=== PATIENT | female | born 1995 | race Caucasian/White ===

== ENCOUNTER → 2024-05-06 14:37 | Outpatient (REF) | payer OTHER, SELFPAY | LOC: HWRAD 14:37 | PROVIDERS: ATTENDING PHYSICIAN Obstetrics & Gynecology; FAMILY PHYSICIAN Student in an Organized Health Care Education/Training Program | DX: N90.7 Vulvar cyst (principal) | CPT/HCPCS: 76830; 76856 ==

== ENCOUNTER → 2024-08-23 19:10 | Outpatient (REF) | payer OTHER, SELFPAY | LOC: MRI 3T 19:10 | PROVIDERS: ATTENDING PHYSICIAN Obstetrics & Gynecology; FAMILY PHYSICIAN Student in an Organized Health Care Education/Training Program | DX: Q52.4 Other congenital malformations of vagina (principal) | CPT/HCPCS: 72197; A9575 ==

== ENCOUNTER 2024-09-21 06:04 | Day surgery (SDC) | payer OTHER, SELFPAY ==
[2024-09-13 10:49] LABS: Hematocrit 40.4 % (37.0-47.0); Hemoglobin 13.9 g/dL (12.0-16.0); Mean Corp Hgb Conc. 34.4 g/dL (33.0-37.0); Mean Corpuscular Volume 87.3 fL (81.0-99.0); Mean Platelet Volume 8.8 fL (7.4-10.4); Platelet Count 368 10^3/uL (130-400); Red Blood Cell Count 4.63 10^6/uL (4.20-5.40); Red Cell Dist. Width 11.9 % (11.5-14.5); White Blood Cell Count 7.2 10^3/uL (4.8-10.8)
[2024-09-13 11:08] LABS: Blood Urea Nitrogen 12 mg/dl (7-17); Calcium 9.7 mg/dl (8.4-10.2); Carbon Dioxide 26 mmol/L (22-30); Chloride 102 mmol/L (98-107); Glucose 88 mg/dl (70-99); Potassium 4.8 mmol/L (3.5-5.1); Sodium 137 mmol/L (135-145); eGFR > 60.00
[2024-09-21 06:05] VITALS: BMI 27.0
[2024-09-21 06:10] VITALS: BP 132/80
[2024-09-21] MEDS: Pyridium 200 MG PO (06:30)
[2024-09-21] MEDS: NORMOSOL-R/PLASMALYTE-A 1000 IV (06:31)
[2024-09-21 06:44] VITALS: BMI 27.0
[2024-09-21 09:48] VITALS: BP 125/73; BP 132/80
[2024-09-21 10:28] VITALS: BP 116/69
[2024-09-21 10:57] VITALS: BP 111/68
[2024-09-21] MEDS: ZOFRAN 4 MG IV (11:15)
[2024-09-21 11:30] VITALS: BP 118/75
[2024-09-21] MEDS: ROXICODONE 5 MG PO (11:37)
== END 2024-09-21 12:30 | disposition home or self-care (01) ==
LOC: SDS 06:04
PROVIDERS: ATTENDING PHYSICIAN Obstetrics & Gynecology; FAMILY PHYSICIAN Student in an Organized Health Care Education/Training Program
DX: Q52.4 Other congenital malformations of vagina (principal)
CPT/HCPCS: 57135; 88304; 36415; 80048; 85027; 86850; 86900; 86901; 93005

== ENCOUNTER 2024-09-24 03:57 | Emergency (ER) | payer OTHER, SELFPAY ==
[2024-09-24 04:02] VITALS: BP 138/92
[2024-09-24 04:24] LABS: % Basophils 0.5 % (0-2); % Immature Granulocytes 0.3 % (0-0.5); % Lymphocytes 23.9 % (20.5-51.1); % Monocytes 5.8 % (1.7-9.3); % Neutrophils 68.5 % (42.2-75.2); Absolute Basophils 0.1 10^3/uL (0-0.2); Absolute Eosinophils 0.1 10^3/uL (0-0.7); Absolute Lymphocytes 2.2 10^3/uL (1.2-3.4); Absolute Monocytes 0.5 10^3/uL (0.1-0.6); Absolute Neutrophils 6.4 10^3/uL (1.4-6.5); Hematocrit 37.3 % (37.0-47.0); Hemoglobin 12.9 g/dL (12.0-16.0); Mean Corp Hgb Conc. 34.6 g/dL (33.0-37.0); Mean Corpuscular Hgb 30.4 pg (27.0-31.0); Mean Corpuscular Volume 87.8 fL (81.0-99.0); Mean Platelet Volume 8.3 fL (7.4-10.4); Nucleated Red Blood Cells % 0 %; Platelet Count 348 10^3/uL (130-400); Red Blood Cell Count 4.25 10^6/uL (4.20-5.40); Red Cell Dist. Width 11.9 % (11.5-14.5); White Blood Cell Count 9.4 10^3/uL (4.8-10.8)
[2024-09-24 04:35] LABS: HCG, Serum Qualitative Screen Negative
[2024-09-24 04:44] LABS: ALT (SGPT) 29 U/L (0-35); AST (SGOT) 29 U/L (14-36); Albumin 4.1 g/dl (3.5-5.0); Alkaline Phosphatase 77 U/L (38-126); Blood Urea Nitrogen 12 mg/dl (7-17); Calcium 9.3 mg/dl (8.4-10.2); Carbon Dioxide 29 mmol/L (22-30); Chloride 103 mmol/L (98-107); Glucose 112 mg/dl (70-99); Potassium 4.1 mmol/L (3.5-5.1); Sodium 140 mmol/L (135-145); Total Protein 6.7 g/dl (6.3-8.2)
[2024-09-24 04:54] LABS: eGFR > 60.00
--- NOTE | 2024-09-24 07:28 | ED.GENMED ---
History of Present Illness
General
Chief Complaint: Abdominal Pain
Time Seen by Provider: 09/24/24 07:27
History of Present Illness
History of Present Illness:
29-year-old female presents to the emergency department for evaluation of constipation, has not had a bowel movement for 1 week. She is 3 days status post laparoscopic ovarian cystectomy. Denies any abdominal distention but does feel mild
intermittent crampy pain throughout the abdomen. No fevers or chills. Passing small caliber stools and occasional liquid
Review of Systems
Review of Systems
Allergies reviewed?: Yes
All Other Systems: ROS reviewed and negative except as documented in HPI and ROS
Phy Exam
Physical Exam
Physical Exam:
GEN: Well appearing, NAD, WDWN
HEENT: Oral mucosa moist, no scleral icterus
Cardiac: Regular rate
Lung: No respiratory distress, no tachypnea
MSK: No gross deformity or injuries
Skin: Good color, no pallor or jaundice, no rashes
Neuro: AO x3, moves all extremities freely
Psych: Calm, cooperative
Course
Orders/Labs/Results
Orders:
Orders
09/24/24 04:05
Test Result ONCE
09/24/24 04:14
Complete Blood Count/With Diff Urgent
Comprehensive Metabolic Panel Urgent
HCG, Serum Qualitative Screen Urgent
09/24/24 07:28
CR Obstruct Series W/pa Chest Urgent
Comment:
Reason For Exam: constipation/recent surgery
Abnormal Lab Results
09/24/24
04:14
Glucose 112 H mg/dl
(70-99)
09/24/24 04:14
09/24/24 04:14
Vital Signs
Initial and Last Documented VS:
Initial Vital Signs
Temp Pulse Resp BP Pulse Ox
98.4 F 69 16 138/92 99
09/24/24 04:02 09/24/24 04:02 09/24/24 04:02 09/24/24 04:02 09/24/24 04:02
Last Documented Vital Signs
Temp Pulse Resp BP Pulse Ox
98.4 F 69 16 138/92 99
09/24/24 04:02 09/24/24 04:02 09/24/24 04:02 09/24/24 04:02 09/24/24 04:02
MDM/Problems Addressed
MDM/Problems Addressed:
No evidence of bowel obstruction on plain films. Patient does not have severe rectal discomfort suggesting a fecal impaction. Will recommend potent laxatives and increase fluids
*Critical Care Note
Total Time (30-74mins, 75-104mins- exclusive of procedures): Not Applicable
ED Attending Note
-
Portions of this chart may have been created with voice recognition software.� Occasional wrong word or��sound alike� substitutions may have occurred due to the inherent limitations of voice recognition software.
Discharge Plan
Departure
Patient Disposition: Home (Routine Discharge)
Date of Disposition: 09/24/24
Time of Disposition: 08:32
Patient with high blood pressure during this ER visit?: No
Discharge Problem:
Constipation
Instructions: Constipation, Adult (DC)
Prescriptions:
No Action
cyanocobalamin (vitamin B-12) 1,000 MCG tablet
1,000 mcg PO DAILY
mesalamine [Lialda] 1.2 GM tablet,delayed release (DR/EC)
4 tab PO DAILY
escitalopram oxalate 5 mg Tablet
5 mg PO DAILY
cholecalciferol (vitamin D3) [Vitamin D3] 50 mcg (2,000 unit) Capsule
50 mcg PO DAILY
Activity Restrictions/Additional Instructions:
Option 1: Miralax bowel prep
Mix a full (238g) bottle of Miralax into two 32 oz liquids of your choice and consume over 6-8 hours. Take two Dulcolax OR senna at the start and at the end of the prep
Option 2: Magnesium Citrate
can be purchased at most OTC pharmacies
Consume entire bottle in one sitting
If you feel intense rectal pressure and cannot pass stool, you may need an enema or a manual disimpaction
Interventions
Interventions:
*General Assessment Last Done: 09/24/24 04:02
*ED COVID-19 Vaccine History Last Done: 09/24/24 04:02
*Nursing Disposition Last Done: 09/24/24 09:05
Discharge Date and Time
Discharge Date/Time: 09/24/24 09:05
Print Language: [place] CITIZ[place]
== END 2024-09-24 09:05 | disposition home or self-care (01) ==
LOC: EMR 03:57
PROVIDERS: Student in an Organized Health Care Education/Training Program; EMERGENCY PHYSICIAN Emergency Medicine; FAMILY PHYSICIAN Student in an Organized Health Care Education/Training Program
DX: K59.00 Constipation, unspecified (principal)
CPT/HCPCS: 99283; 74022; 80053; 84703; 85025

== ENCOUNTER → 2024-10-29 08:01 | Outpatient (REF) | payer OTHER, SELFPAY | LOC: HWRCS 08:01 | PROVIDERS: ATTENDING PHYSICIAN Nuclear Medicine Nuclear Cardiology; FAMILY PHYSICIAN Student in an Organized Health Care Education/Training Program | DX: R07.89 Other chest pain (principal); R00.2 Palpitations; R06.02 Shortness of breath | CPT/HCPCS: 93306 ==

== ENCOUNTER 2024-11-01 06:24 | Day surgery (SDC) | payer OTHER, SELFPAY | END 2024-11-01 14:21 | disposition home or self-care (01) | LOC: GI 06:24 | PROVIDERS: ATTENDING PHYSICIAN Internal Medicine | DX: Z12.11 Encounter for screening for malignant neoplasm of colon (principal); K50.10 Crohn's disease of large intestine without complications | CPT/HCPCS: 45380; 88305 ==

== ENCOUNTER → 2024-11-12 07:36 | Outpatient (REF) | payer OTHER, SELFPAY | LOC: RCS 07:36 | PROVIDERS: ATTENDING PHYSICIAN Nuclear Medicine Nuclear Cardiology; FAMILY PHYSICIAN Student in an Organized Health Care Education/Training Program | DX: R07.89 Other chest pain (principal); R00.2 Palpitations; R06.02 Shortness of breath | CPT/HCPCS: 93017 ==

== ENCOUNTER 2025-08-15 10:50 | Observation (INO) | payer OTHER, SELFPAY ==
[2025-08-15 11:03] VITALS: BMI 28.5
[2025-08-15] MEDS: CELESTONE SOLUSPAN 2 MG IM (11:14)
== END 2025-08-15 11:30 | disposition home or self-care (01) ==
LOC: PNTC-IN 10:50
PROVIDERS: ADMITTING PHYSICIAN Obstetrics & Gynecology
DX: O26.873 Cervical shortening, third trimester (principal); Z3A.28 28 weeks gestation of pregnancy
CPT/HCPCS: G0378

== ENCOUNTER 2025-08-16 11:01 | Observation (INO) | payer OTHER, SELFPAY ==
[2025-08-16 11:14] VITALS: BP 122/65; BMI 28.5
[2025-08-16] MEDS: CELESTONE SOLUSPAN 2 MG IM (11:49)
== END 2025-08-16 12:15 | disposition home or self-care (01) ==
LOC: PNTC-IN 11:01
PROVIDERS: ADMITTING PHYSICIAN Obstetrics & Gynecology; ATTENDING PHYSICIAN Obstetrics & Gynecology
DX: O26.873 Cervical shortening, third trimester (principal); O09.523 Supervision of elderly multigravida, third trimester; Z3A.28 28 weeks gestation of pregnancy
CPT/HCPCS: G0378